=== PATIENT | male | born 1975 | race Caucasian/White ===

== ENCOUNTER 2018-07-04 22:38 | Emergency (ER) | payer BC ==
[~2018-07-04] VITALS: Wt 90.2 kg
--- NOTE | 2018-07-05 00:05 | ERD ---
ER Documentation Chief Complaint Chief Complaint "I FEEL LIKE KILLING MYSELF". NO PLAN, NO HI, NO HALLUCINATIONS HPI This a 43-year-old male who is complaining of suicidal ideation today. He states that he is having a rough time in life right now with the breakup with his girlfriend. The patient says is having lots of other issues that he does not want discussed this time. Patient has a prior history of suicide attempts by laying down in the middle of the street and waiting for a car to run over him. Patient states that he is thinking about multiple ways to harm himself including taking a bunch of pills or cutting himself. He says that he does vacillate between wanting to hurt himself and not ROS All systems reviewed and are negative except as per history of present illness. Allergies Allergies: Coded Allergies: No Known Allergy (Unverified , 07/04/18) PMhx/Soc Medical and Surgical Hx: pt denies Medical Hx, pt denies Surgical Hx History of Surgery: No Anesthesia Reaction: No Hx Neurological Disorder: No Hx Respiratory Disorders: No Hx Cardiac Disorders: No Hx Psychiatric Problems: Yes (BIPOLAR DIAGNOSED 1992, DEPRESSION) Hx Miscellaneous Medical Probl: No Hx Alcohol Use: Yes Hx Substance Use: No Hx Tobacco Use: Yes Smoking Status: Light tobacco smoker FmHx Family History: No coronary disease Physical Exam Vitals Vital Signs Date Temp Pulse Resp B/P (MAP) Pulse Ox O2 O2 Flow FiO2 Time Delivery Rate 07/04/18 97.3 79 20 123/72 98 22:49 (89) Physical Exam Const: No acute distress Head: Atraumatic Eyes: Normal Conjunctiva ENT: Normal External Ears, Nose and Mouth. Neck: Full range of motion. No meningismus. Resp: Clear to auscultation bilaterally Cardio: Regular rate and rhythm, no murmurs Abd: Soft, non tender, non distended. Normal bowel sounds Skin: No petechiae or rashes Back: No midline or flank tenderness Ext: No cyanosis, or edema Neur: Awake and alert Psych: Suicidal Result Diagram: 07/04/18229907/04/182299 Results 24 hrs Laboratory Tests Test 07/04/18 23:00 White Blood Count 11.1 10^3/ul Red Blood Count 5.25 10^6/ul Hemoglobin 14.0 g/dl Hematocrit 43.2 % Mean Corpuscular Volume 82.3 fl Mean Corpuscular Hemoglobin 26.7 pg Mean Corpuscular Hemoglobin Concent 32.4 g/dl Red Cell Distribution Width 14.9 % Platelet Count 285 10^3/UL Mean Platelet Volume 9.8 fl Immature Granulocytes % 0.500 % Neutrophils % 45.8 % Lymphocytes % 43.6 % Monocytes % 6.1 % Eosinophils % 2.7 % Basophils % 1.3 % Nucleated Red Blood Cells % 0.0 /100WBC Immature Granulocytes # 0.050 10^3/ul Neutrophils # 5.1 10^3/ul Lymphocytes # 4.8 10^3/ul Monocytes # 0.7 10^3/ul Eosinophils # 0.3 10^3/ul Basophils # 0.1 10^3/ul Nucleated Red Blood Cells # 0.0 10^3/ul Sodium Level 140 mmol/L Potassium Level 3.6 mmol/L Chloride Level 104 mmol/L Carbon Dioxide Level 27 mmol/L Anion Gap 9 Blood Urea Nitrogen 13 mg/dl Creatinine 0.91 mg/dl Est Glomerular Filtrat Rate mL/min > 60 mL/min Glucose Level 86 mg/dl Calcium Level 9.5 mg/dl Total Bilirubin 0.5 mg/dl Direct Bilirubin 0.00 mg/dl Indirect Bilirubin 0.5 mg/dl Aspartate Amino Transf (AST/SGOT) 26 IU/L Alanine Aminotransferase (ALT/SGPT) 43 IU/L Alkaline Phosphatase 54 IU/L Total Protein 7.5 g/dl Albumin 4.3 g/dl Globulin 3.20 g/dl Albumin/Globulin Ratio 1.34 Salicylates Level < 1.0 mg/dl Acetaminophen Level < 10.0 ug/ml Ethyl Alcohol Level < 10.0 mg/dl Procedures/MDM Patient has some significant suicidal ideation and we will have him evaluated by telemetry psychiatry and transferred to inpatient Departure Diagnosis: Primary Impression: Suicidal ideation Condition: Stable ROBSON VACA DO Jul 05, 2018 00:05
--- NOTE | 2018-07-05 03:21 | PSY ---
Date/Time of Note Date/Time of Note DATE: 07/05/18 TIME: 03:20 Psychiatric Subjective Eval Consent Pt consented to telemedicine: Yes Subjective Evaluation Patient location: emergency Chief Complaint: "I FEEL LIKE KILLING MYSELF". NO PLAN, NO HI, NO HALLUCINATIONS Medical history Problems Medical Problems: (1) Suicidal ideation Status: Acute Allergies: Coded Allergies: No Known Allergy (Unverified , 07/04/18) Psychiatric Objective Eval Mental Status Examination: Laboratory Results Laboratory Tests Test 07/04/18 23:00 07/04/18 23:02 White Blood Count 11.1 10^3/ul Red Blood Count 5.25 10^6/ul Hemoglobin 14.0 g/dl Hematocrit 43.2 % Mean Corpuscular Volume 82.3 fl Mean Corpuscular Hemoglobin 26.7 pg Mean Corpuscular Hemoglobin Concent 32.4 g/dl Red Cell Distribution Width 14.9 % Platelet Count 285 10^3/UL Mean Platelet Volume 9.8 fl Immature Granulocytes % 0.500 % Neutrophils % 45.8 % Lymphocytes % 43.6 % Monocytes % 6.1 % Eosinophils % 2.7 % Basophils % 1.3 % Nucleated Red Blood Cells % 0.0 /100WBC Immature Granulocytes # 0.050 10^3/ul Neutrophils # 5.1 10^3/ul Lymphocytes # 4.8 10^3/ul Monocytes # 0.7 10^3/ul Eosinophils # 0.3 10^3/ul Basophils # 0.1 10^3/ul Nucleated Red Blood Cells # 0.0 10^3/ul Sodium Level 140 mmol/L Potassium Level 3.6 mmol/L Chloride Level 104 mmol/L Carbon Dioxide Level 27 mmol/L Anion Gap 9 Blood Urea Nitrogen 13 mg/dl Creatinine 0.91 mg/dl Est Glomerular Filtrat Rate mL/min > 60 mL/min Glucose Level 86 mg/dl Calcium Level 9.5 mg/dl Total Bilirubin 0.5 mg/dl Direct Bilirubin 0.00 mg/dl Indirect Bilirubin 0.5 mg/dl Aspartate Amino Transf (AST/SGOT) 26 IU/L Alanine Aminotransferase (ALT/SGPT) 43 IU/L Alkaline Phosphatase 54 IU/L Total Protein 7.5 g/dl Albumin 4.3 g/dl Globulin 3.20 g/dl Albumin/Globulin Ratio 1.34 Salicylates Level < 1.0 mg/dl Acetaminophen Level < 10.0 ug/ml Ethyl Alcohol Level < 10.0 mg/dl Urine Opiates Screen Negative Urine Barbiturates Negative Urine Amphetamines Screen Positive Urine Benzodiazepines Screen Negative Urine Cocaine Screen Negative Urine Cannabinoids Positive Assessment and Plan Recommendation/Plan Discharge Disposition: Psychiatric inpatient Legal Status: Voluntary Assessment Additional comments: IDENTIFYING INFORMATION: 43 year old CM patient who is currently located at the hospital and for whom psychiatric consultation was requested. SOURCES OF INFORMATION: The patient who appears to be reliable and the medical records; the nursing staff. CHIEF COMPLAINT: "thoughts of wanting to kill myself". HISTORY OF PRESENT ILLNESS: The patient was interviewed via telemedicine in the presence of and under the supervision of nursing staff of the hospital. The consent to conducting this interview via telemedicine was obtained by the nursing staff at the hospital. ROJELIO Tovar reports that the patient presented with SI. Has h/o BPAD, depression. The patient reports having depressed mood, SI, hopelessness, anhedonia, . The patient denies having AH, VH, delusions. The patient denies using alcohol heavily or regularly. The patient denies using any other substances. PAST MEDICAL HISTORY: none. CURRENT MEDICATIONS: lexapro, adderal, abilify, wellbutrin- unknown dose. ALLERGIES TO MEDICATIONS: NKDA. LABORATORY TESTS: CBC with white blood cells of 11.1, CMP unremarkable, no alcohol detected, UDS + amph, MJ, SOCIAL HISTORY: the patient declined to answer. REVIEW OF SYSTEMS: Constitutional (e.g., fever, weight loss): negative; Eyes, Ears, Nose, Mouth, Throat: negative; Cardiovascular: negative; Respiratory: negative; Gastrointestinal: negative; Genitourinary: negative; Musculoskeletal: negative; Integumentary (skin and/or breast): negative; Neurological: negative; Psychiatric: as per HPI; Endocrine: negative; Hematologic/Lymphatic: negative; Allergic/Immunologic: negative. MENTAL STATUS EXAMINATION: General Appearance and Behavior: Calm, cooperative with the interview, pleasant with the current interviewer, makes fair eye contact, fairly groomed, no abnormal movements noted, Speech: Regular rate, regular rhythm, normal latency, normal volume, somewhat decreased amount, Flow of thought: sequential, logical, goal-directed, Content of thought: no auditory hallucinations, no visual hallucinations, no delusions, positive for suicidal ideation; no homicidal ideation, Mood: "depressed", Affect: dysthymic, dysphoric, not reactive, Attention: normal based on the interview, Insight: fair, Judgment: poor, Memory: normal based on the interview, Sensorium: alert and oriented to person, place and date. ASSESSMENT: The patient's presentation and history are consistent with the diagnosis of unspecified mood disorder, cannabis use disorder. The patient presents in a major depressive episode in the context of medication noncompliance, psychosocial stressors and substance use. No evidence of psychosis, chani, hypomania on exam. PLAN: - Medication management: Would continue home medications for now. Would start haloperidol 5 mg IM PRN severe agitation q4 hours. Would start diphenhydramine 50 mg IM PRN severe agitation q4 hours. Would start lorazepam 2 mg IM PRN severe agitation q4 hours Will defer to the inpatient psychiatry team for other medication changes. - Labs: No other laboratory tests are needed at this time. - Psychotherapy: Provided supportive psychotherapy and psychoeducation. - Disposition: Would recommend voluntary admission to the inpatient psychiatric unit as the patient would benefit from such an intervention so long as the patient has been cleared medically for admission to psychiatry. The patient is agreeable to being hospitalized in the inpatient psychiatric unit at this time. Would place on suicide precautions. MALIK NGUYEN MD Jul 05, 2018 03:21
--- NOTE | 2018-07-05 06:43 | QN ---
Documentation Comment Psychiatric Observation Note: Indication: Suicidal ideation Duration: Greater than 8 hours Family history: As documented in original HPI The patient was observed with serial exams over the above timeframe. The patient continued to be well-appearing, and observation continued without complication. All other needs have been met during emergency department stay. Routine psychiatric medications ordered: Not requested by telemetry medicine psychiatry Hold status: Telemetry medicine psychiatry has recommended voluntary hold Placement status: [facility] is reviewing the patient's packet and likely to accept. Pending placement. KENYETTA GRULLON MD Jul 05, 2018 06:43
--- NOTE | 2018-07-05 11:29 | CONS ---
Date/Time of Note Date/Time of Note DATE: 07/05/18 TIME: 11:28 Consult Date/Type/Reason Admit Date Type of Consult Psych Objective Patient Appearance: Appropriate dress Voice Loudness: Moderately Soft/Quiet Mood and Affect Description: Flat affect Mood or Affect: Cooperative, Flat Affect Speech Pattern: Clear Thought Process: Intact Hallucination Type: None, Auditory Delusion Description: Present Assessment/Plan Recommendations Voluntary admission with [facility] ALL ALVARENGA NP Jul 05, 2018 11:29
[2018-07-05 15:00] VITALS: BP 115/57; PULSE 83; RESP 18
== END 2018-07-05 15:01 ==
LOC: E/R 22:38
DX: R45.851 Suicidal ideations (principal); R40.2142 Coma scale, eyes open, spontaneous, at arrival to emergency department; R40.2362 Coma scale, best motor response, obeys commands, at arrival to emergency department; R40.2252 Coma scale, best verbal response, oriented, at arrival to emergency department; F17.210 Nicotine dependence, cigarettes, uncomplicated
CPT/HCPCS: 36415; 80053; 80307; 85025